=== PATIENT | female | born 1990 | race Caucasian/White ===

== ENCOUNTER 2018-01-03 13:04 | Outpatient (REF) | payer MEDICAID, SELFPAY | END 2018-01-03 13:05 | LOC: LBN 13:04 | PROVIDERS: PCP Family Medicine; Visit Provider Obstetrics & Gynecology Gynecology | DX: Z34.83 Encounter for supervision of other normal pregnancy, third trimester (principal); Z36.85 Encounter for antenatal screening for Streptococcus B | CPT/HCPCS: 87081 ==

== ENCOUNTER 2018-02-05 22:22 | Inpatient (IN) | payer MEDICAID, SELFPAY ==
[2018-02-05 23:31] LABS: HCT 34.9 % (36.0-46.0); HGB 11.6 g/dL (12.0-15.5); Mean Corp. HGB Concentration 33.2 g/dL (32.0-36.0); Mean Corpuscular Hemoglobin 27.2 pg (27.0-33.0); Mean Corpuscular Volume 81.7 fL (80-95); Mean Platelet Volume 12.3 fL (8.0-11.0); Platelet Count 178 x1000/uL (130-400); RBC 4.27 m/cumm (4.00-5.20); RBC Distribution Width 14.2 % (11.7-14.6)
[2018-02-06] MEDS: Lactated Ringers 1,000 ML 125 ML IV ×2 (01:09→10:07)
[2018-02-06] MEDS: Normal Saline Flush 10 ML SYR IVP (01:15)
[2018-02-06] MEDS: Lactated Ringers 500 ML IV (03:50)
[2018-02-06] MEDS: fentaNYL 100 MCG/2 ML VIAL EP (04:02)
[2018-02-06] MEDS: Bupivacaine 0.25% Pres-Free 30 ML VIAL (04:02)
[2018-02-06] MEDS: Ondansetron 4 MG/2 ML VIAL IVP (16:30)
[2018-02-07 08:46] LABS: HCT 31.3 % (36.0-46.0); HGB 10.2 g/dL (12.0-15.5); Mean Corp. HGB Concentration 32.6 g/dL (32.0-36.0); Mean Corpuscular Hemoglobin 27.1 pg (27.0-33.0); Mean Platelet Volume 11.6 fL (8.0-11.0); Platelet Count 148 x1000/uL (130-400); RBC 3.77 m/cumm (4.00-5.20); RBC Distribution Width 14.3 % (11.7-14.6); White Blood Cell Count 9.93 k/cumm (4.4-10.8)
[2018-02-07] MEDS: Acetaminophen 325 MG TAB 650 MG PO (11:05)
== END 2018-02-07 14:30 | disposition home or self-care (01) | DRG 775 ==
PROVIDERS: Admitting Provider Obstetrics & Gynecology; PCP Family Medicine; Visit Provider Obstetrics & Gynecology
DX: O48.0 Post-term pregnancy (principal); Z37.0 Single live birth; Z3A.40 40 weeks gestation of pregnancy; O66.0 Obstructed labor due to shoulder dystocia; O99.52 Diseases of the respiratory system complicating childbirth; J45.909 Unspecified asthma, uncomplicated; O76 Abnormality in fetal heart rate and rhythm complicating labor and delivery
CPT/HCPCS: 36415; 85027; 86850; 86900; 86901; J2405; J3490

== ENCOUNTER 2018-02-14 16:57 | Outpatient (CLI) | payer MEDICAID, SELFPAY ==
[2018-02-14 17:20] LABS: Abs Immature Grans 0.01 k/cumm (0.0-0.09); Absolute Basophil Count 0.03 k/cumm (0.0-0.2); Absolute Eosinophil Count 0.11 k/cumm (0.0-0.7); Absolute Lymphocyte Count 2.69 k/cumm (1.2-3.4); Absolute Monocyte Count 0.68 k/cumm (0.11-0.7); Absolute Neutrophil Count 6.35 k/cumm (1.2-6.7); Basophils % 0.3; Eosinophils % 1.1; HGB 12.6 g/dL (12.0-15.5); Immature Grans % 0.1; Lymphocytes % 27.3; Mean Corp. HGB Concentration 32.3 g/dL (32.0-36.0); Mean Corpuscular Hemoglobin 26.6 pg (27.0-33.0); Mean Corpuscular Volume 82.5 fL (80-95); Mean Platelet Volume 10.6 fL (8.0-11.0); Monocytes % 6.9; Neutrophils % 64.3; Platelet Count 298 x1000/uL (130-400); RBC 4.73 m/cumm (4.00-5.20); RBC Distribution Width 14.5 % (11.7-14.6); White Blood Cell Count 9.87 k/cumm (4.4-10.8)
== END 2018-02-14 17:17 ==
PROVIDERS: PCP Family Medicine; Visit Provider Nurse Practitioner Women's Health
DX: N89.8 Other specified noninflammatory disorders of vagina (principal)
CPT/HCPCS: 36415; 85025

== ENCOUNTER 2018-04-25 09:53 | Outpatient (CLI) | payer MEDICAID, SELFPAY ==
[2018-04-25 11:29] LABS: HCT 40.7 % (36.0-46.0); HGB 13.5 g/dL (12.0-15.5); Mean Corp. HGB Concentration 33.2 g/dL (32.0-36.0); Mean Corpuscular Hemoglobin 27.6 pg (27.0-33.0); Mean Corpuscular Volume 83.2 fL (80-95); Mean Platelet Volume 11.5 fL (8.0-11.0); Platelet Count 209 x1000/uL (130-400); RBC 4.89 m/cumm (4.00-5.20); RBC Distribution Width 14.5 % (11.7-14.6); White Blood Cell Count 7.09 k/cumm (4.4-10.8)
== END 2018-04-25 10:13 ==
PROVIDERS: PCP Family Medicine; Visit Provider Obstetrics & Gynecology Gynecology
DX: Z30.2 Encounter for sterilization (principal); Z01.818 Encounter for other preprocedural examination
CPT/HCPCS: 36415; 85027; 86850; 86900; 86901

== ENCOUNTER 2018-05-01 06:16 | Day surgery (SDC) | payer MEDICAID, SELFPAY ==
--- NOTE | 2018-05-01 06:00 | HPE_ITS ---
Date of service: 04/25/18 Time of Service: 13:59 Assessment and Plan (1) Pre-op exam: Current visit: No Status: Acute Nl preop H&P. Risk and benefits of the procedure were discussed with the patient at length. Informed consent was obtained she was instructed to be n.p.o. after midnight and will have lab work and a preoperative nursing appointment prior to the surgery. Plan: History of Present Illness Chief Complaint: Preop H&P Narrative: Pt is a female who presents for history and physical in anticipation of a laparoscopic bilateral salpingectomy on 05/01/2018 Patient underwent a spontaneous vaginal delivery on 02/06/2018 without complications. Her postop course has been uncomplicated. During her antepartum course she expressed a strong desire for permanent sterilization. Pt is sure that she wants a BTL. I spoke at length to her about this during her . Her Jose had a vasectomy during the . Pt is insistent that she also have a sterilization. Federal sterilization consent signed during the . At today's visit we discussed the permanent nature of the tubal sterilization the risk of ectopic and the recommendation for a bilateral salpingectomy. I discussed the risks of the procedure including the risk of damage to organs bowel bladder blood vessels at the time of placement of the laparoscopic trochars through the abdominal wall and the risk of thermal damage to surrounding structures. Patient is agreeable to the procedure and signed inf ormed consent. Review of Systems Review of Systems All systems reviewed & are unremarkable except as noted in HPI and below PFSH Medical History Insomnia (Chronic) Low back pain (Chronic) Chronic headaches (Chronic) Hand numbness (Chronic) Pain, joint, hip, left (Chronic) Sacroiliac pain (Chronic) Asthma (Chronic) Tobacco use (Resolved) (Inactive) Tobacco use during (Inactive 03/17/14) BMI 36.0-36.9,adult Surgical History Amputation Social History adopted: No foster care: Yes (3yo x 2 weeks) household members: children housing: house marital status: Ramiro-Jose number of children: 3 current occupation: working towards accounting degree. 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 water heater temp set < 120 deg: Yes working smoke detector in home: Yes fire extinguisher in home: No carbon monox detector in home: No firearms in home: Yes firearms unloaded and locked: Yes History History 5 Para Hx # Term Pregnancies 3 Multiple births Hx # Pregnancies Ectopic pregnancies AB induced Hx Number of Living Children AB spontaneous Meds Home Medications Medication Instructions Recorded Confirmed Type PNV cmb#95-ferrous fumarate-FA 1 ea PO DAILY #90 tab-cap 05/31/17 04/26/18 Rx [Prenavite] albuterol sulfate HFA 90 2 puff IH Q6H PRN 01/13/18 04/26/18 History mcg/actuation aerosol inhaler valacyclovir 500 mg tablet 500 mg PO BID #18 tab 04/24/18 04/26/18 Rx Allergies Allergy/AdvReac Type Severity Reaction Status Date / Time Penicillins Allergy Severe familial Unverified 04/26/18 13:43 analyphalactic shock Exam Const General: comfortable and no acute distress Orientation: alert, awake and oriented x3 Neck Neck: normal visual inspection Thyroid: thyroid normal Resp Effort & Inspection: normal respiratory effort Auscultation: clear to auscultation bilaterally Cardio Jugular venous pressure: no JVD Palpation: normal PMI Rate: regular rate Rhythm: regular rhythm Heart Sounds: S1 normal and S2 normal General: deferred Skin General skin exam: no rashes or lesions noted
[2018-05-01 06:20] VITALS: BP 117/80; PULSE 74; RESP 16; TEMP 36.6; O2SAT 96
[2018-05-01] MEDS: Lactated Ringers 1,000 ML 125 ML IV ×2 (06:55→08:40)
[2018-05-01] MEDS: Bupivacaine 0.25% Pres-Free 30 ML VIAL (08:20)
--- NOTE | 2018-05-01 08:30 | FALL_PTH ---
PATIENT: Kirstie Swan LOC: [facility] U#:[id number] AGE/SX: 27/F ROOM: RE05/01/[address]: Mitra Mcgraw : 1990 BED: DIS: 05/01/2018 SPEC #: [id number] RECD: 05/01/18 12:52 STATUS: PABLO REQ #: [id number] KAYDEN: 05/01/18 08:[address]: Mitra Mcgraw DEPT: Surgical Specimen RECD BY: Dulce Maria Garvin ENTERED: 05/01/18 12:53 SP TYPE: Fall OTHR DR: Neena Bourne Tissues: 1 - FALLOPIAN TUBE (STERILIZATION) 2 - FALLOPIAN TUBE (STERILIZATION) Procedures: GROSS AND MICRO LEVEL 2 Comments: [id number]
[2018-05-01 09:08] VITALS: BP 125/66; PULSE 80; RESP 15; TEMP 36.8; O2SAT 98
[2018-05-01 09:13] VITALS: BP 118/63; PULSE 74; RESP 15; TEMP 36.8; O2SAT 99
[2018-05-01] MEDS: fentaNYL 100 MCG/2 ML VIAL IVP (09:14)
[2018-05-01 09:18] VITALS: BP 117/66; PULSE 67; RESP 21; TEMP 36.8; O2SAT 99
--- NOTE | 2018-05-01 09:31 | W.PM.DSUDISC ---
Discharge Plan Disposition Patient Disposition: HOME Condition: Fair Discharge Details Attending Provider: Mitra Mcgraw Primary Care Provider: Neena Bourne Home Meds and New Rx's Prescriptions: No Action valacyclovir 500 mg tablet 500 mg PO BID Qty: 18 RF: 5 albuterol sulfate 90 mcg/actuation HFA aerosol inhaler 2 puff IH Q6H PRNRF: 0 oxycodone-acetaminophen [Percocet] 5-325 mg tablet 1 tab PO Q6H MDD 4 PRN (Reason: pain) Qty: 5 RF: 0 PNV cmb#95-ferrous fumarate-FA [] 1 EACH tablet 1 ea PO DAILY Qty: 90 RF: 0 Discharge Instructions Additional Instructions: Postoperative Instructions Outpatient Gynecology Because there will be medication in your system for the next 24 hours, you may feel a little sleepy. Your coordination will be affected. Therefore: Do not drive or operate dangerous equipment for 24 hours. Do not drink alcoholic beverages for 24 hours (not even beer). Plan to go home and rest for the day. Rest, drink liquids and eat lightly for the rest of the day. Do not plan to return to normal activity for two full days. Some women require 5-7 days to feel 100 percent. Arrange to have someone stay with you for the rest of the day. You should arrange for child care director on the day of surgery. If you have incisions, leave the skin glue in place for 3-4days. You may have a sore throat or hoarseness after surgery. This usually lasts a short time and is relieved by drinking liquids. If hoarseness persists longer than 24 hours, please contact the anesthesia department by calling the hospital. Take Tylenol or Advil for cramping. If that does not work, you may be too active so try cutting back on your activities. You may use up to 3 Advil every (4) four to (6) six hours. Use the prescription medication in between doses of Advil if needed. You should be able to urinate as usual following the surgery. Any form of surgery can cause your menstrual cycle to become irregular. You need a follow-up appointment (1-2) weeks following surgery. Please call the office for an appointment. If you had a Laparascopic procedure there are no restrictions on tampons, intercourse or tub baths. Please report any of the following conditions or any questions regarding your condition to your doctor and the Day Surgery Unit: Increased drainage or foul smelling drainage. Temperature of 101 F or above. Excessive pain. If you are unable to contact your doctor, contact the hospital at [phone]. Continue all your regular medications unless directed otherwise. You have a prescription for Pecocet for strong pain not relieved by the Ibuporfen Revised 10/18/10 Stand Alone Forms: [facility] Post Gynecology Surgery, Jarvis Carnes ([facility]) Activity:: Activity as Tolerated Diet:: As Tolerated Discharge Orders Discharge Orders: Discharge Order (Routine); Ordered 05/01/18 Ordered By: Mitra Mcgraw Discharge Data Discharge Date/Time-TO BE ENTERED AT DEPARTURE: 05/01/18 11:11 DS: Diagnosis Discharge Diagnosis (1) Pre-op exam: Status: Inactive (2) Encounter for sterilization: Start date: 05/01/18 Start time: 09:32 Status: Acute
[2018-05-01 09:33] VITALS: BP 117/66; PULSE 68; RESP 16; TEMP 36.6; O2SAT 98
--- NOTE | 2018-05-01 09:38 | PDOC.DSDIS_ITS ---
Discharge Plan Disposition Patient Disposition: HOME Condition: Fair Discharge Details Attending Provider: Mitra Mcgraw Primary Care Provider: Neena Bourne Home Meds and New Rx's Prescriptions: No Action valacyclovir 500 mg tablet 500 mg PO BID Qty: 18 RF: 5 albuterol sulfate 90 mcg/actuation HFA aerosol inhaler 2 puff IH Q6H PRNRF: 0 oxycodone-acetaminophen [Percocet] 5-325 mg tablet 1 tab PO Q6H MDD 4 PRN (Reason: pain) Qty: 5 RF: 0 PNV cmb#95-ferrous fumarate-FA [] 1 EACH tablet 1 ea PO DAILY Qty: 90 RF: 0 Discharge Instructions Additional Instructions: Postoperative Instructions Outpatient Gynecology * Because there will be medication in your system for the next 24 hours, you may feel a little sleepy. Your coordination will be affected. Therefore: Do not drive or operate dangerous equipment for 24 hours. Do not drink alcoholic beverages for 24 hours (not even beer). Plan to go home and rest for the day. * Rest, drink liquids and eat lightly for the rest of the day. Do not plan to return to normal activity for two full days. Some women require 5-7 days to feel 100 percent. * Arrange to have someone stay with you for the rest of the day. You should arrange for early childhood services coordinator on the day of surgery. * If you have incisions, leave the skin glue in place for 3-4days. * You may have a sore throat or hoarseness after surgery. This usually lasts a short time and is relieved by drinking liquids. If hoarseness persists longer than 24 hours, please contact the anesthesia department by calling the hospital. * Take Tylenol or Advil for cramping. If that does not work, you may be too active so try cutting back on your activities. You may use up to 3 Advil every (4) four to (6) six hours. Use the prescription medication in between doses of Advil if needed. * You should be able to urinate as usual following the surgery. * Any form of surgery can cause your menstrual cycle to become irregular. * You need a follow-up appointment (1-2) weeks following surgery. Please call the office for an appointment. * If you had a Laparascopic procedure there are no restrictions on tampons, intercourse or tub baths. * Please report any of the following conditions or any questions regarding your condition to your doctor and the Day Surgery Unit: Increased drainage or foul smelling drainage. Temperature of 101 F or above. Excessive pain. * If you are unable to contact your doctor, contact the hospital at [phone]. * Continue all your regular medications unless directed otherwise. You have a prescription for Pecocet for strong pain not relieved by the Ibuporfen Revised 10/18/10 Stand Alone Forms: [facility] Post Gynecology Surgery, Jarvis Carnes ([facility]) Activity:: Activity as Tolerated Diet:: As Tolerated Discharge Orders Discharge Orders: Discharge Order (Routine); Ordered 05/01/18 Ordered By: Mitra Mcgraw Discharge Data Discharge Date/Time-TO BE ENTERED AT DEPARTURE: 05/01/18 11:11 DS: Diagnosis Discharge Diagnosis (1) Pre-op exam: Status: Inactive (2) Encounter for sterilization: Start date: 05/01/18 Start time: 09:32 Status: Acute
--- NOTE | 2018-05-01 09:58 | ROE_ITS ---
Date of service: 05/01/18 Time of Service: 09:57 Operative Note DATE OF PROCEDURE: 05/01/18 PRE-OP DIAGNOSIS: Multiparity desiring permanent sterilization POST-OP DIAGNOSIS: same PROCEDURE: Laparoscopic bilateral salpingectomy SURGEON: Mitra Mcgraw RADIOLOGICAL TECHNOLOGIST: Doreen Jaime ANESTHESIA: GETA and other (Triny Pfeiffer) ESTIMATED BLOOD LOSS: 0 PATHOLOGY: other (Bilateral fallopian tubes to pathology) COMPLICATIONS: None Patient was transported to: PACU Patient's condition: stable Findings: Normal upper abdomen and pelvis. Normal ovaries, uterus,. And fallopian tubes Procedure Description: Patient was taken to the operating room she was placed in the dorsal supine position and general endotracheal anesthesia was administered without difficulty. After a timeout was completed to her abdomen was prepped and she was draped in the usual sterile fashion. A vertical skin incision was made below the umbilicus approximately 3 cm in length after infiltration of the site with quarter percent Marcaine. The subcutaneous tissue was dissected using blunt technique to the level of the rectus fascia which was then tented up and incised allowing visualization of the peritoneum and surgical incision of the peritoneum as it was tented up. A Kolton 12 mm trocar and sleeve were placed through this incision and intra-abdominal placement confirmed by use of the laparoscope. Pneumoperitoneum was created patient was placed in Trendelenburg and under direct visualization two 5 mm trochars were placed approximately 3 cm medial to the inferior anterior iliac crest after the site was infiltrated with 0.25 % Marcaine without epinephrine and incised with a scalpel. The fallopian tube was grasped at its fimbriated and followed out to the uterine cornua where the uterine cornua was grasped cauterized and incised using the LigaSure bipolar electrocautery device. Mesosalpinx was then cauterized and transected to the level of the created and. Once the fallopian tube had been freed from its attachments it was delivered through the right 5 mm trocar. The left fallopian tube was located followed out to its fimbriated end and using the LigaSure electrocautery device attachments to the mesosalpinx and the proximal body of the ovary were clamped, cauterized, and transected. There were several small clear cystic structures measuring 2-4 mm attached to the left fallopian tube which precluded being removed using the 5 mm trocar and sleeve. As a result the 10 mm Endo Catch bag was inserted into the abdomen but we were unable to deliver the specimen through the Endo Catch bag secondary to the Kolton being too short to satisfactorily move the Endo Catch bag back into position. The attempted to manipulate the Endo Catch bag resulted in the trocar being pulled from its abdominal wall attachments and loss of pneumoperitoneum. Decision was made to remove the Endo Catch bag and instead grasp the left fallopian tube and deliver it without difficulty point through the 10 mm port. Both pedicles were inspected and were hemostatic. Both adnexa were normal in appearance at the completion of procedure. Under direct visualization both 5 mm sleeves were removed and the pneumoperitoneum was reduced and the Kolton port was removed. Rectus fascia was reapproximated with a running suture of 0 Vicryl. Secondary closure of the subcutaneous tissue was performed with 0 Vicryl to eliminate any space and the transverse skin incision was reapproximated with a subarticular suture of 4-0 Monocryl. Skin glue was used to re-approximate the edges of all of the skin incisions. All sponge lap and needle counts are correct x2. No antibiotics required for this procedure. SCDs were in plac during the entire case. At the completion of the procedure the patient was awakened, extubated, and transported to recovery area in stable condition.
[2018-05-01 10:05] VITALS: BP 100/63; PULSE 75; RESP 20; TEMP 37.5; O2SAT 94
[2018-05-01] MEDS: oxyCODONE 5 mg/Acetaminophen 325 mg TAB PO (10:25)
== END 2018-05-01 11:11 | disposition home or self-care (01) ==
PROVIDERS: PCP Family Medicine; Visit Provider Obstetrics & Gynecology Gynecology
PROC: (CPT 58661; principal; 2018-05-01 07:30)
DX: Z30.2 Encounter for sterilization (principal); Q50.5 Embryonic cyst of broad ligament
CPT/HCPCS: 58661; NC; 88302; J0131; J1100; J1885; J3010

== ENCOUNTER 2018-07-01 13:50 | Outpatient (REF) | payer MEDICAID, SELFPAY ==
[2018-07-01 23:15] LABS: Bilirubin Negative (Negative); Blood Negative (Negative); Clarity Clear; Glucose Negative (Negative); Ketones Negative (Negative); Leukocyte Esterase Negative (Negative); Nitrite Negative (Negative); Specific Gravity 1.025 (1.005-1.025); Urobilinogen 0.2 EU/dL (Up TO 0.2); pH 5.5 (5-8)
[2018-07-01 23:23] LABS: C & S Indicated? Yes
[2018-07-01 23:26] LABS: Crystals Many Amorphous HPF (Negative)
== END 2018-07-01 14:10 ==
LOC: LBN 13:50
PROVIDERS: PCP Family Medicine; Visit Provider Nurse Practitioner Family
DX: R10.9 Unspecified abdominal pain (principal); M54.5 Low back pain
CPT/HCPCS: 81003; 81015; 87086

== ENCOUNTER 2018-07-17 13:20 | Outpatient (REF) | payer MEDICAID, SELFPAY ==
[2018-07-17 22:24] LABS: Bilirubin Negative (Negative); Blood Negative (Negative); Clarity Clear; Glucose Negative (Negative); Ketones Negative (Negative); Leukocyte Esterase Negative (Negative); Nitrite Negative (Negative); Specific Gravity >= 1.030 (1.005-1.025); Urobilinogen 0.2 EU/dL (Up TO 0.2); pH 5.5 (5-8)
[2018-07-17 22:49] LABS: Bacteria Few HPF (Negative); C & S Indicated? No/Sq. Contamination; Casts Negative LPF (Negative); Crystals Negative HPF (Negative); Epithelial Cells Moderate HPF (Negative); Mucus Negative (Negative)
== END 2018-07-17 13:40 ==
LOC: NCHCN 13:20
PROVIDERS: PCP Family Medicine; Visit Provider Nurse Practitioner Family
DX: R10.9 Unspecified abdominal pain (principal)
CPT/HCPCS: 81003; 81015

== ENCOUNTER 2019-01-16 16:21 | Outpatient (CLI) | payer MEDICAID, SELFPAY ==
--- NOTE | 2019-01-16 15:02 | DI.RAD_ITS ---
SYMPTOMS/DIAGNOSIS: COUGH, R05 PA AND LATERAL CHEST: The heart is normal in size. The lungs are clear. The mediastinal structures and pleura appear intact. CONCLUSION: Normal chest.
== END 2019-01-16 16:41 ==
PROVIDERS: PCP Family Medicine; Visit Provider Nurse Practitioner Family
DX: R05 Cough (principal)
CPT/HCPCS: 71046

== ENCOUNTER 2019-07-16 12:52 | Outpatient (CLI) | payer BC, SELFPAY ==
--- NOTE | 2019-07-16 | DI.RAD_ITS ---
EXAM: XR FINGER LT MIDDLE EXAM DATE/TIME: 07/16/2019 1231 CLINICAL HISTORY: LEFT FINGER PAIN M79.645. TECHNIQUE: 2D digital imaging was performed. COMPARISON: None. FINDINGS: BONES: No acute fracture is present. No bony destructive lesion is seen. Note is made of a prior amp utation of the index and ring fingers. JOINTS: No dislocation present. SOFT TISSUE: Normal. IMPRESSION: No evidence of acute fracture, dislocation, or subluxation. DATA REPOSITORY: RADIATION DOSE DELIVERED:
== END 2019-07-16 13:12 ==
PROVIDERS: PCP Family Medicine; Visit Provider Nurse Practitioner Family
DX: M79.645 Pain in left finger(s) (principal); Z89.022 Acquired absence of left finger(s)
CPT/HCPCS: 73140

== ENCOUNTER 2020-06-07 17:59 | Outpatient (REF) | payer MEDICAID, SELFPAY ==
[2020-06-09 15:04] LABS: Chlamydia Result Negative (Negative); GC Result Negative (Negative)
== END 2020-06-07 18:19 ==
LOC: LBN 17:59
PROVIDERS: PCP Family Medicine; Visit Provider Obstetrics & Gynecology Gynecology
DX: Z11.3 Encounter for screening for infections with a predominantly sexual mode of transmission (principal)
CPT/HCPCS: 87491; 87591

== ENCOUNTER 2021-02-08 14:21 | Outpatient (REF) | payer MEDICAID, SELFPAY ==
[2021-02-09 12:51] LABS: COVID-19 RT-PCR UVMMC Result Negative (Negative)
== END 2021-02-08 14:22 | disposition home or self-care (01) ==
LOC: NCHCN 14:21
PROVIDERS: PCP Family Medicine; Visit Provider Nurse Practitioner Family
DX: Z20.822 Contact with and (suspected) exposure to COVID-19 (principal); J06.9 Acute upper respiratory infection, unspecified
CPT/HCPCS: U0003

== ENCOUNTER 2021-08-23 10:28 | Outpatient (CLI) | payer OTHER, SELFPAY ==
--- NOTE | 2021-08-23 09:00 | DI.RAD_ITS ---
Exam(s) XR SHOULDER RT COMPLETE 2+V EXAM: XR SHOULDER RT COMPLETE 2+V CLINICAL HISTORY: RIGHT SHOULDER PAIN. TECHNIQUE: 2D digital imaging was performed of the right shoulder. Two images were obtained. AP an d axillary views were obtained. COMPARISON: No exams were available for comparison FINDINGS: BONES: No acute fracture is present. No bony destructive lesion is seen. JOINTS: No dislocation present. SOFT TISSUE: Normal. IMPRESSION: Unremarkable radiographs of the right shoulder. DATA REPOSITORY: RADIATION DOSE DELIVERED:
== END 2021-08-23 10:29 | disposition home or self-care (01) ==
LOC: DIORS 10:28
PROVIDERS: PCP Nurse Practitioner Family; Referring Provider Nurse Practitioner Family; Visit Provider Student in an Organized Health Care Education/Training Program
DX: M25.511 Pain in right shoulder (principal)
CPT/HCPCS: 73030

== ENCOUNTER → 2021-12-06 02:57 | Outpatient (CLI) | payer MEDICAID, SELFPAY ==
--- NOTE | 2021-12-06 07:00 | DI.MRI_ITS ---
Exam(s) MR UPPER JOINT RT WO EXAM: MR UPPER JOINT RT WO CLINICAL HISTORY: RIGHT SHOULDER PAIN, M25.511. TECHNIQUE: Multiplanar multisequence MRI was performed. COMPARISON: CR XR SHOULDER RT COMPLETE 2+V from 08/23/2021 FINDINGS: BONES: There is no fracture or contusion pattern. Tiny nonspecific cysts are seen in the subchondral humeral head. JOINTS: The acromioclavicular joint is normal. The glenohumeral joint is normal. TENDONS: Supraspinatus: Unremarkable. Infraspinatus: Unremarkable. Subscapularis: Unremarkable. Teres Minor: Unremarkable. Biceps and Addison: Unremarkable. MUSCLES: Unremarkable. GLENOID LABRUM: Unremarkable on this noncontrast examination. SOFT TISSUES: Unremarkable. LIGAMENTS: Unremarkable. OTHER: Subacromial and subdeltoid bursae are unremarkable. IMPRESSION: Unremarkable MRI of the shoulder. DATA REPOSITORY:
== END ==
PROVIDERS: PCP Nurse Practitioner Family; Visit Provider Student in an Organized Health Care Education/Training Program
DX: M25.511 Pain in right shoulder (principal)
CPT/HCPCS: 73221

== ENCOUNTER 2022-12-30 14:11 | Outpatient (REF) | payer SELFPAY ==
[2022-12-30 16:57] LABS: Abs Immature Grans 0.02 10^3/uL (0.0-0.06); Absolute Basophil Count 0.02 10^3/uL (0.0-0.2); Absolute Eosinophil Count 0.16 10^3/uL (0.0-0.7); Absolute Lymphocyte Count 1.88 10^3/uL (1.2-3.4); Absolute Monocyte Count 0.77 10^3/uL (0.1-0.8); Basophils % 0.3; Eosinophils % 2.2; HCT 40.4 % (36.0-46.0); HGB 13.4 g/dL (11.2-15.7); Immature Grans % 0.3; Lymphocytes % 25.6; MCH 29.6 pg (27.0-33.0); MCHC 33.2 % (32.0-36.0); MCV 89 fL (80-95); MPV 11.5 fL (8.0-11.0); Monocytes % 10.5; Neutrophils % 61.1; Platelet Count 257 10^3/uL (130-400); RBC 4.52 10^6/uL (3.93-5.22); RDW 12.7 % (11.7-14.6); RDW-SD 41.7 fL; WBC 7.35 10^3/uL (4.4-10.8)
[2022-12-30 17:09] LABS: ALT 35 U/L (14-59); AST 23 U/L (15-37); Albumin 3.6 g/dL (3.4-5.0); Alkaline Phosphatase 48 U/L (46-116); BUN 8 mg/dL (7-18); Bilirubin, Total 0.2 mg/dL (0.2-1.0); CREATININE 0.7 mg/dL (0.55-1.02); Calcium 8.7 mg/dL (8.5-10.1); Chloride 110 mmol/L (98-107); Estimated GFR 118.51 (mL/min/1.73m2); Glucose 107 mg/dL (74-106); Potassium 4.5 mmol/L (3.5-5.1); Sodium 145 mmol/L (136-145); Total Protein 6.6 g/dL (6.4-8.2)
[2022-12-30 17:33] LABS: C Diff PCR Negative (Negative)
[2022-12-31 22:39] LABS: Campylobacter PCR Negative (Negative); Salmonella PCR Negative (Negative); Shiga Toxin PCR Negative (Negative); Shigella/Enteroinvasive Ecoli Negative (Negative)
== END 2022-12-30 14:12 | disposition home or self-care (01) ==
LOC: LBN 14:11
PROVIDERS: PCP Nurse Practitioner Family; Visit Provider Physician Assistant Medical
DX: R19.7 Diarrhea, unspecified (principal); E86.0 Dehydration
CPT/HCPCS: 80053; 87329; 87493; 87505; 85025; 87177

== ENCOUNTER → 2023-06-04 19:21 | Outpatient (CLI) | payer OTHER, SELFPAY ==
--- NOTE | 2023-06-04 | DI.RAD_ITS ---
Exam(s) XR CHEST 2V PA LATERAL EXAM: XR CHEST 2V PA LATERAL CLINICAL HISTORY: Pneumonia, J18.9 TECHNIQUE: 2D digital imaging was performed of the chest. Two images were obtained. PA and lateral views were obtained. COMPARISON: CR XR CHEST 2V PA LATERAL from 01/16/2019 FINDINGS: MEDIASTINUM: Normal. HEART: Normal. PULMONARY VASCULATURE: Normal. LUNGS: Clear. PLEURAL SPACE: No pleural effusion or pneumothorax. BONE:Within normal limits for the patient's age. OTHER FINDINGS:Normal. IMPRESSION: No acute pulmonary findings. DATA REPOSITORY: RADIATION DOSE DELIVERED:
== END ==
PROVIDERS: PCP Nurse Practitioner Family; Visit Provider Family Medicine
DX: J18.9 Pneumonia, unspecified organism (principal)
CPT/HCPCS: 71046

== ENCOUNTER 2023-07-03 14:57 | Outpatient (REF) | payer OTHER, SELFPAY | END 2023-07-03 14:58 | disposition home or self-care (01) | LOC: LBN 14:57 | PROVIDERS: PCP Nurse Practitioner Family; Visit Provider Obstetrics & Gynecology Gynecology | DX: N76.0 Acute vaginitis (principal); N76.2 Acute vulvitis | CPT/HCPCS: 87480; 87510; 87660 ==

== ENCOUNTER 2023-08-24 11:12 | Outpatient (REF) | payer OTHER, SELFPAY | END 2023-08-24 11:13 | disposition home or self-care (01) | LOC: NCHCN 11:12 | PROVIDERS: PCP Nurse Practitioner Family; Visit Provider Nurse Practitioner Family | DX: E66.9 Obesity, unspecified (principal) | CPT/HCPCS: 84443 ==

== ENCOUNTER 2024-10-28 15:03 | Outpatient (REF) | payer OTHER, SELFPAY ==
--- NOTE | 2024-10-28 09:15 | PAPFT_PTH ---
PATIENT: Kirstie Swan LOC: [facility]#:[id number] AGE/SX: 34/F ROOM: RE10/28/[address]: Lesli Alfredo : 1990 BED: DIS: 10/28/2024 SPEC #: [id number] RECD: 10/29/24 12:59 STATUS: PABLO REAudrey #: [id number] KAYDEN: 10/28/24 09:[address]: Lesli Alfredo DEPT: [facility] Cytology RECD BY: Dulce Maria Garvin Tissues: 1 - CX/ENDOCX FOR PAP SMEARS Procedures: PAP THIN PREP/[facility] Screening HPV DNA PROBE Comments: [id number] (HPV 16 & 18/45) (CHLAMYDIA/GC)
[2024-10-30 11:37] LABS: Chlamydia Result Negative (Negative); GC Result Negative (Negative)
== END 2024-10-28 15:04 | disposition home or self-care (01) ==
LOC: NCHCN 15:03
PROVIDERS: PCP Nurse Practitioner Family; Visit Provider Nurse Practitioner Family
DX: Z12.4 Encounter for screening for malignant neoplasm of cervix (principal); Z00.00 Encounter for general adult medical examination without abnormal findings; Z01.419 Encounter for gynecological examination (general) (routine) without abnormal findings
CPT/HCPCS: 87491; 87591; 88142; 87624

== ENCOUNTER 2024-12-11 12:16 | Outpatient (REF) | payer OTHER, SELFPAY ==
[2024-12-11 15:18] LABS: C & S Indicated? No; RBC 0-2 HPF (0-2); WBC 0-2 HPF (0-5)
== END 2024-12-11 12:17 | disposition home or self-care (01) ==
LOC: NCHCN 12:16
PROVIDERS: PCP Nurse Practitioner Family; Visit Provider Nurse Practitioner Family
DX: R31.29 Other microscopic hematuria (principal)
CPT/HCPCS: 81015